=== PATIENT | female | born 1995 ===

== ENCOUNTER 2021-10-06 14:22 | Outpatient (CLI) | payer OTHER | END 2021-10-06 15:35 | disposition home or self-care (01) | LOC: PRENATAL 14:22 | DX: O35.0XX0 Maternal care for (suspected) central nervous system malformation in fetus, not applicable or unspecified (principal); O35.3XX0 Maternal care for (suspected) damage to fetus from viral disease in mother, not applicable or unspecified; Z3A.22 22 weeks gestation of pregnancy ==

== ENCOUNTER 2024-11-23 07:39 | Outpatient (CLI) | payer OTHER | END 2024-11-23 07:40 | disposition home or self-care (01) | LOC: PRENATAL 07:39 | PROVIDERS: ATTEND Obstetrics & Gynecology Maternal & Fetal Medicine | DX: O44.00 Complete placenta previa NOS or without hemorrhage, unspecified trimester (principal); Z3A.20 20 weeks gestation of pregnancy ==